=== PATIENT | female | born 2005 | race Caucasian/White ===

== ENCOUNTER 2024-02-08 12:05 | Emergency (ER) | payer MEDICAID, SELFPAY ==
--- NOTE | 2024-02-08 12:15 | ED.NAVMDI ---
HPI - Nausea/Vomiting/Diarrhea General Chief complaint: Nausea/Vomiting/Diarrhea Stated complaint: Headache/Nausea/Diarrhea Source: patient and RN notes reviewed Mode of arrival: ambulatory Limitations: no limitations History of Present Illness HPI Narrative: 19 y/o female presented for c/o nausea and vomiting that occurred 3 days ago, then started with diarrhea, hot flashes and chills yesterday. Pt was able to tolerate yogurt and toast today. Denies abdominal pain. Taking pepto. Denies cough, sob, wheezing. LMP about 2 weeks ago but was shorter than normal, had neg preg test at home yesterday. Related Data Home Medications Medication Instructions Recorded Confirmed buspirone 10 mg tablet 10 mg PO DAILY 02/08/24 02/08/24 vits no.126-ferrous fum 1 tablet PO DAILY 02/08/24 02/08/24 28 mg iron-folic acid 800 mcg tablet (Classic ) Allergies Allergy/AdvReac Type Severity Reaction Status Date / Time No Known Allergies Allergy Verified 02/08/24 12:20 Review of Systems Review of Systems: CONSTITUTIONAL: Denies body aches, reports fever, chills ENT: Denies rhinorrhea, congestion CARDIOVASCULAR: Denies chest pain, palpitations, or edema. RESPIRATORY: Denies cough or dyspnea. GASTROINTESTINAL: Endorses nausea, vomiting, diarrhea. Denies abdominal pain, hematochezia, melena, hematemesis GENITOURINARY: Denies dysuria, hematuria, or CVA tenderness. SKIN: Denies rash, itching, or wounds. NEUROLOGIC: Denies headache, numbness, tingling, or weakness. All systems reviewed & are unremarkable except as noted in HPI and below PMFSH Comments At time of signature, I have reviewed and agree with nursing past medical, surgical, social and family history unless otherwise noted. Please see nursing chart for further information. There is no relevant family history pertinent to the presenting complaint Exam Narrative: GENERAL: mildly ill-appearing, and in no acute distress. EYES: EOMI. Conjunctivae normal. ENT: Mucous membranes pink and moist. CHEST: No respiratory distress. Clear to auscultation. HEART: Regular rate and rhythm. No murmur appreciated. Normal peripheral pulses. ABDOMEN: abd soft, nondistended, normal active bowel sounds. nontender abdomen; No guarding, rebound tenderness, asymmetry EXTREMITIES: Normal range of motion. No edema. SKIN: Warm, dry, no rash. Capillary refill normal. Normal skin turgor. NEURO: No focal deficits. Alert and oriented x3. Course Course Emergency Course: Patient is aware of diagnosis, understands and agrees to treatment plan. Anticipatory guidance given. Patient agrees to follow-up as directed and is aware of reasons to seek care at the emergency department. Portions of this record may have been created with voice recognition software Level of Care: Express Care Visit Vital Signs Vital signs: Vital Signs Temperature 98.7 F 02/08/24 12:22 Pulse Rate 96 02/08/24 12:22 Respiratory Rate 16 02/08/24 12:22 Blood Pressure 127/84 02/08/24 12:22 Pulse Oximetry 100 02/08/24 12:22 Oxygen Delivery Room Air 02/08/24 12:22 Temperature 98.7 F 02/08/24 12:22 Pulse Rate 96 02/08/24 12:22 Respiratory Rate 16 02/08/24 12:22 Blood Pressure 127/84 02/08/24 12:22 Pulse Oximetry 100 02/08/24 12:22 Oxygen Delivery Room Air 02/08/24 12:22 MDM - Nausea/Vomiting/Diarrhea MDM Narrative Medical decision making narrative: Discussed physical exam findings and neg preg, flu and covid test results. Advised supportive measures and signs/symptoms to go to the ER. Pt is appropriate for outpt treatment and f/u. Differential Diagnosis Differential diagnosis: Likely traveler's diarrhea, food poisoning, gastroenteritis, drug-induced nausea and vomiting and dehydration Lab Data Labs: Lab Results 02/08/24 Range/Units 12:30 POC Urine HCG, Qual Negative (Negative) POC Influenza A Ag Negative (Negative) POC Infl
[2024-02-08 12:22] VITALS: BP 127/84; PULSE 96; RESP 16; TEMP 37.1; O2SAT 100
[2024-02-08 12:40] LABS: BEDSIDEPREGUCG Negative (Negative); EDCOVIDSCREEN Negative (Negative); EDINFLUASCREEN Negative (Negative); EDINFLUBSCREEN Negative (Negative)
== END 2024-02-08 13:09 | disposition home or self-care (01) ==
PROVIDERS: Emergency Provider Nurse Practitioner Family
DX: R19.7 Diarrhea, unspecified (principal); Z79.899 Other long term (current) drug therapy; Z20.822 Contact with and (suspected) exposure to COVID-19
CPT/HCPCS: 81025; 87426; 87804; 99212; G0463